=== PATIENT | male | born 1980 | race Two or more races ===

== ENCOUNTER 2017-01-21 07:50 | Emergency (ER) | payer OTHER ==
[~2017-01-21] VITALS: Ht 170.2 cm; Wt 88.5 kg
[2017-01-21 08:03] VITALS: BP 127/83
== END 2017-01-21 09:14 | disposition home or self-care (01) ==
LOC: ER 07:50
DX: S93.402A Sprain of unspecified ligament of left ankle, initial encounter (principal); Z90.49 Acquired absence of other specified parts of digestive tract; W18.39XA Other fall on same level, initial encounter; Y93.89 Activity, other specified; Y92.89 Other specified places as the place of occurrence of the external cause; Y99.8 Other external cause status
CPT/HCPCS: 73610